=== PATIENT | female | born 1945 | race Caucasian/White ===

== ENCOUNTER 2016-11-20 08:50 | Day surgery (SDC) | payer MEDICARE ==
[~2016-11-20] VITALS: Ht 154.9 cm; Wt 93.0 kg
[2016-11-20] MEDS ORDERED: CEFAZOLIN 1 GM IVPB PREMIX 50 ML IV ONE (10:00)
[2016-11-20] MEDS ORDERED: fentaNYL CITRATE 250 MCG/5 ML AMP IV ONE (11:50)
[2016-11-20] MEDS ORDERED: ONDANSETRON HCL 4 MG/2 ML VIAL IVP ONE (11:50)
[2016-11-20] MEDS ORDERED: MIDAZOLAM HCL 5 MG/5 ML VIAL IVP ONE (11:50)
[2016-11-20] MEDS ORDERED: KETOROLAC TROMETHAMINE 15 MG VIAL IVP ONE (11:50)
[2016-11-20] MEDS ORDERED: ISOSULFAN BLUE 5 ML VIAL (LYMPHAZURIN) INJ ONE (11:50)
[2016-11-20] MEDS ORDERED: PROPOFOL 200MG/ 20ML VIAL (DIPRIVAN) IV ONE (11:50)
[2016-11-20] MEDS ORDERED: ROCURONIUM BROMIDE 10 MG/ML (ZEMURON) IV ONE (11:50)
[2016-11-20] MEDS ORDERED: BUPIVACAINE /EPINEPHRINE/PF 0.25% 30 ML VIAL INJ ONE (11:50)
[2016-11-20] MEDS ORDERED: SEVOFLURANE 15 MIN GAS INH ONE (11:50)
[2016-11-20] MEDS ORDERED: LR 1,000 ML IV.SOLN IV ONE (11:50)
[2016-11-20] MEDS ORDERED: ETOMIDATE 20 MG/ 10 ML VIAL (AMIDATE) IVP ONE (11:50)
[2016-11-20] MEDS ORDERED: DEXAMETHASONE SOD PHOSPHATE 4 MG/ML VIAL IVP ONE (11:50)
[2016-11-20] MEDS ORDERED: FAMOTIDINE PF 20 MG/2 ML VIAL ONE (12:57)
[2016-11-20] MEDS ORDERED: LR 1,000 ML IV SCH (13:04)
[2016-11-20] MEDS ORDERED: HYDROmorphone 2 MG/ML VIAL IVP PRN ×2 (13:15)
[2016-11-20] MEDS ORDERED: MEPERIDINE HCL/PF 25 MG/ML DISP.SYRIN IVP PRN (13:15)
[2016-11-20] MEDS ORDERED: HYDROmorphone 1 MG INJ. 1 MG/ML AMPUL IVP PRN ×2 (13:15→14:00)
[2016-11-20] MEDS ORDERED: D5/0.45 NS 1,000 ML IV SCH (13:47)
[2016-11-20] MEDS ORDERED: HYDROcodone/ACETAMIN 5-325 MG TAB (NORCO/ VICODIN) PO PRN ×2 (14:00)
[2016-11-20 14:50] VITALS: BP_SYST 112
== END 2016-11-20 15:50 | disposition home or self-care (01) ==
LOC: SDS 08:50 → EDSTATUS 10:00 → SDS 15:50
PROVIDERS: ATTEND Colon & Rectal Surgery
DX: C50.912 Malignant neoplasm of unspecified site of left female breast (principal); I10 Essential (primary) hypertension; E78.5 Hyperlipidemia, unspecified; K21.9 Gastro-esophageal reflux disease without esophagitis; E66.01 Morbid (severe) obesity due to excess calories
CPT/HCPCS: 19281; 19301; 38525; 76098; 78195; 88307; 88329; 88342; A9541; J0690; J1100; J1885; J2250; J2405; J2704; J3010; J3490 ×3; J7120; Q9968; 19081